=== PATIENT | female | born 1955 | race Caucasian/White ===

== ENCOUNTER → 2020-02-04 12:30 | Inpatient (IN) | payer BC ==
--- NOTE | 2020-02-03 10:07 | PCM.CONS ---
H&P History of Present Illness - General Date of Service: 02/03/20 Admit Problem/Dx: Admission Diagnosis/Problem Admission Diagnosis/Problem Osteoarthritis of knee Source of Information: Patient, Old Records, Provider, RN, RN Notes Reviewed History Limitations: Reports: No Limitations - History of Present Illness Initial Comments - Free Text/Narative: Linda Cao is a 64 yo female patient of Dr. Valencia who is post-operative day 0 of right TKA. Hospital medicine was consulted for post-operative medical care of the following listed medical conditions. At this time she is resting comfortably in bed. Pain is controlled. She denies any chest pain, shortness of breath, palpitations, nausea, or vomiting. She carries a history of: HLD, HTN, MABEL on CPAP, Gastritis, GERD, Hx/o Post-operative nausea and vomiting, Hypertonicity of Bladder, Hypothyroidism, Obesity, Ovarian and renal cancer, Anxiety, Depression. She was never a smoker. She is a full code. Her primary care provider is Mercedes Cassidy NP. - Related Data Allergies/Adverse Reactions: Allergies Allergy/AdvReac Type Severity Reaction Status Date / Time Iodinated Contrast Media Allergy Hives Verified 01/31/20 14:15 [Iodinated Contrast Media - IV Dye] Penicillins Allergy Hives Verified 01/31/20 14:15 sulfacetamide Allergy Hives Verified 01/31/20 14:15 pravastatin AdvReac Muscle Verified 01/31/20 14:20 Aches Home Medications: Home Meds DULoxetine [Cymbalta] 30 mg PO DAILY 09/30/15 [History] Glucosam/Chond-MSM 2/C/D3/Rustam [Molsuqmpfe-Mxybpvhqwca-TPO] 1 tab PO DAILY 09/30/15 [History] Hydrochlorothiazide 25 mg PO DAILY 09/30/15 [History] Calcium Carb/Vitamin D3/Vit K1 [Calcium + D Soft Chewable Tab] 2 tab PO DAILY 04/19/16 [History] Ubidecarenone [Coq-10] 1 cap PO DAILY 04/19/16 [History] diphenhydrAMINE [Benadryl] 100 mg PO BEDTIME PRN 04/19/16 [History] Acetaminophen/Diphenhydramine [Tylenol Pm Ex-Strength Caplet] 2 tab PO BEDTIME 01/31/20 [History] Ascorbic Acid [Vitamin C] 500 mg PO DAILY 01/31/20 [History] Cholecalciferol (Vitamin D3) [Vitamin D3] 2,000 unit PO DAILY 01/31/20 [History] Ezetimibe [Zetia] 10 mg PO DAILY 01/31/20 [History] LORazepam [Ativan] 0.25 - 0.5 mg PO Q8H PRN 01/31/20 [History] Melatonin 10 mg PO DAILY 01/31/20 [History] Multivitamin 1 tab PO DAILY 01/31/20 [History] Past Medical History HEENT History: Reports: Allergic Rhinitis, Impaired Vision Other HEENT History: wears glasses Cardiovascular History: Reports: High Cholesterol, Hypertension Respiratory History: Reports: Sleep Apnea Gastrointestinal History: Reports: Gastritis, GERD Other Gastrointestinal History: post operative nausea and vomiting, colon polyp Genitourinary History: Reports: Other (See Below) Other Genitourinary History: hypertonicity of bladder 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 , Other OB/BYN History: endosalpiniosis of L ovary, laparoscopy Musculoskeletal History: Reports: Arthritis Neurological History: Reports: None Psychiatric History: Reports: Anxiety Endocrine/Metabolic History: Reports: Hypothyroidism Hematologic History: Reports: None, Blood Transfusion(s) Immunologic History: Reports: None Oncologic (Cancer) History: Reports: Ovarian Other Oncologic History: kidney partial removal due to cancer Dermatologic History: Reports: None - Past Surgical History Head Surgeries/Procedures: Reports: None Cardiovascular Surgical History: Reports: None Respiratory Surgical History: Reports: None GI Surgical History: Reports: Colonoscopy, EGD Female Surgical History: Reports: Breast Reduction, Hysterectomy, Nephrectomy, Oophorectomy, Tubal Ligation Endocrine Surgical History: Reports: Thyroidectomy Neurological Surgical History: Reports: None Musculoskeletal Surgical History: Reports: None Oncologic Surgical History: Reports: None Dermatological Surgical History: Reports: None Social & Family History - Tobacco Use Smoking Status *Q: Never Smoker Second Hand Smoke Exposure: No - Caffeine Use Caffeine Use: Reports: Coffee, Soda - Recreational Drug Use Recreational Drug Use: No H&P Review of Systems - Review of Systems: Review Of Systems: See Below General: Reports: No Symptoms. Denies: Fever, Chills HEENT: Reports: No Symptoms. Denies: Headaches, Sore Throat Pulmonary: Reports: No Symptoms. Denies: Shortness of Breath, Wheezing, Pleuritic Chest Pain, Cough, Sputum Cardiovascular: Reports: No Symptoms. Denies: Chest Pain, Palpitations, Dyspnea on Exertion Gastrointestinal: Reports: No Symptoms. Denies: Abdominal Pain, Constipation, Diarrhea, Nausea, Vomiting Genitourinary: Reports: No Symptoms. Denies: Pain Musculoskeletal: Reports: Leg Pain Skin: Reports: No Symptoms. Denies: Cyanosis Psychiatric: Reports: No Symptoms. Denies: Confusion Neurological: Reports: Numbness, Tingling, Difficulty Walking, Gait Disturbance Hematologic/Lymphatic: Reports: No Symptoms Immunologic: Reports: No Symptoms Exam - Exam Exam: See Below - Vital Signs Vital Signs: Last Vital Signs Temp 98.8 F 02/03/20 09:05 Pulse 58 L 02/03/20 09:05 Resp 20 02/03/20 09:05 BP 150/70 H 02/03/20 09:05 Pulse Ox 92 L 02/03/20 09:05 Weight: 194 lb - Exam Quality Assessment: DVT Prophylaxis General: Alert, Oriented, Cooperative. No: Mild Distress HEENT: Conjunctiva Clear, EACs Clear, EOMI, Hearing Intact, Mucosa Moist & Hydro, Posterior Pharynx Clear, PERRLA Neck: Supple, Trachea Midline Lungs: Clear to Auscultation, Normal Respiratory Effort Cardiovascular: Regular Rate, Regular Rhythm GI/Abdominal Exam: Normal Bowel Sounds, Soft, Non-Tender, No Distention (Female) Exam: Deferred Rectal (Female) Exam: Deferred Extremities: Normal Capillary Refill, Leg Pain, Limited Range of Motion, Other (Bandage in place on left leg. Bandage is dry and intact. ) Peripheral Pulses: 2+: Radial (L), Radial (R), Dorsalis Pedis (L), Dorsalis Pedis (R) Skin: Warm, Dry, Intact Neurological: Cranial Nerves Intact (Grossly ) Neuro Extensive - Mental Status: Alert, Oriented x3, Normal Mood/Affect - Patient Data Lab Results Last 24 hrs: Laboratory Results - last 24 hr 01/31/20 Range/Units 10:30 COVID-19 PCR Not detected (NOT DETECT) Sepsis Event Note - Evaluation Sepsis Screening Result: No Definite Risk - Focused Exam Vital Signs: Vital Signs Temp Pulse Resp BP Pulse Ox 02/03/20 09:05 98.8 F 58 L 20 150/70 H 92 L Date Exam was Performed: 02/03/20 Time Exam was Performed: 16:06 Consult PN Assessment/Plan POD#: 0 Procedures: Procedures ASSAY OF PREALBUMIN (04/18/18) ASSAY OF SERUM ALBUMIN (04/18/18) ASSAY OF TROPONIN QUANT (03/15/14) COMPLETE CBC W/AUTO DIFF WBC (04/18/18) COMPREHEN METABOLIC PANEL (03/15/14) CT HEAD/BRAIN W/O DYE (03/15/14) DXA BONE DENSITY AXIAL (05/14/15) ELECTROCARDIOGRAM TRACING (03/15/14) EMERGENCY DEPT VISIT (09/30/15) EMERGENCY DEPT VISIT (03/15/14) HYDRATION IV INFUSION INIT (03/15/14) LAPAROSCOPIC CHOLECYSTECTOMY (04/20/16) METABOLIC PANEL TOTAL CA (04/18/18) MRI JNT OF LWR EXTRE W/O DYE (11/27/18) MRI JOINT UPR EXTREM W/O DYE (10/01/15) MRI NECK SPINE W/O DYE (10/01/15) PROTHROMBIN TIME (04/18/18) ROUTINE VENIPUNCTURE (04/18/18) US EXAM OF HEAD AND NECK (05/01/18) X-RAY EXAM CHEST 2 VIEWS (04/17/18) (1) S/P total knee arthroplasty SNOMED Code(s): 7738266033865, 576559259, 8352973499159 Code(s): Z96.659 - PRESENCE OF UNSPECIFIED ARTIFICIAL KNEE JOINT Priority: High Current Visit: Yes Qualifiers: Laterality: left Qualified Code(s): Z96.652 - Presence of left artificial knee joint (2) Osteoarthritis SNOMED Code(s): 219856385 Code(s): M19.90 - UNSPECIFIED OSTEOARTHRITIS, UNSPECIFIED SITE Priority: High Current Visit: Yes Qualifiers: Osteoarthritis location: knee Osteoarthritis type: primary Laterality: left Qualified Code(s): M17.12 - Unilateral primary osteoarthritis, left knee (3) HTN (hypertension) SNOMED Code(s): 34135418 Code(s): I10 - ESSENTIAL (PRIMARY) HYPERTENSION Priority: Medium Current Visit: No Qualifiers: Hypertension type: unspecified Qualified Code(s): I10 - Essential (primary) hypertension (4) HLD (hyperlipidemia) SNOMED Code(s): 93883418 Code(s): E78.5 - HYPERLIPIDEMIA, UNSPECIFIED Priority: Low Current Visit: No Qualifiers: Hyperlipidemia type: unspecified Qualified Code(s): E78.5 - Hyperlipidemia, unspecified (5) MABEL on CPAP SNOMED Code(s): 36346985 Code(s): G47.33 - OBSTRUCTIVE SLEEP APNEA (ADULT) (PEDIATRIC); Z99.89 - DEPENDENCE ON OTHER ENABLING MACHINES AND DEVICES Priority: Medium Current Visit: Yes (6) History of gastritis SNOMED Code(s): 634610422900485 Code(s): Z87.19 - PERSONAL HISTORY OF OTHER DISEASES OF THE DIGESTIVE SYSTEM Priority: Low Current Visit: No (7) GERD (gastroesophageal reflux disease) SNOMED Code(s): 925445850 Code(s): K21.9 - GASTRO-ESOPHAGEAL REFLUX DISEASE WITHOUT ESOPHAGITIS Priority: Low Current Visit: No Qualifiers: Esophagitis presence: esophagitis presence not specified Qualified Code(s): K21.9 - Gastro-esophageal reflux disease without esophagitis (8) History of postoperative nausea and vomiting SNOMED Code(s): 702431138, 620061856 Code(s): Z87.898 - PERSONAL HISTORY OF OTHER SPECIFIED CONDITIONS Priority: Medium Current Visit: No (9) Hypertonicity of bladder SNOMED Code(s): 037960731, 053812177 Code(s): N31.8 - OTHER NEUROMUSCULAR DYSFUNCTION OF BLADDER Priority: Low Current Visit: No (10) Anxiety SNOMED Code(s): 32802053 Code(s): F41.9 - ANXIETY DISORDER, UNSPECIFIED Priority: Low Current Visit: No (11) Depression SNOMED Code(s): 40688298 Code(s): F32.9 - MAJOR DEPRESSIVE DISORDER, SINGLE EPISODE, UNSPECIFIED Priority: Low Current Visit: No Qualifiers: Depression Type: other depression Qualified Code(s): F32.89 - Other specified depressive episodes (12) History of ovarian cancer Priority: Low Current Visit: No (13) History of renal carcinoma SNOMED Code(s): 234053762, 111873323 Code(s): Z85.528 - PERSONAL HISTORY OF OTHER MALIGNANT NEOPLASM OF KIDNEY Priority: Low Current Visit: No (14) Hypothyroidism SNOMED Code(s): 36353427 Code(s): E03.9 - HYPOTHYROIDISM, UNSPECIFIED Priority: Medium Current Visit: No Qualifiers: Hypothyroidism type: unspecified Qualified Code(s): E03.9 - Hypothyroidism, unspecified (15) Obesity SNOMED Code(s): 259482815, 840557003 Code(s): E66.9 - OBESITY, UNSPECIFIED Priority: Low Current Visit: No Qualifiers: Obesity type: unspecified obesity type Obesity classification: adult class 1 (BMI 30 - 34.9) Body mass index: BMI 32.0-32.9 Problem List Initiated/Reviewed/Updated: Yes Plan: I/P: Acute: S/P left total knee arthroplasty - post-operative day 0 -DVT prophylaxis and pain management per primary care team -PT/OT -IS/RT -Monitor oxygen saturation -Titrate oxygen as needed -Home medications reviewed -Vital signs stable -Monitor labs -Pre-operative Hgb was 15.7 -Pre-operative GFR was 72 -Pre-operative A1C was 5.5% -Pre-operative 12-Lead EKG showed Sinus rhythm with LAE -Pre-operative Echo showed EF of 55-60% with Grade 1 DD and LA dilation Osteoarthritis of left knee -Pain management per primary care team Chronic: HLD HTN MABEL on CPAP Gastritis GERD Hx/o Post-operative nausea and vomiting Hypertonicity of Bladder Hypothyroidism Obesity Ovarian and renal cancer Anxiety Depression Plan: CM for discharge planning GI prophylaxis Home medications as indicated Other orders as listed above Routine AM labs She is a full code. Her PCP is Mercedes Cassidy NP Thank you for allowing us to participate in the care of this patient!! Requesting Provider: Dr. Valencia Date Consult Requested: 02/03/20 Patient History Reviewed: Yes Admission H&P Reviewed: Yes Notified Requestor: Yes
--- NOTE | 2020-02-03 10:14 | PCM.PREANE ---
Preanesthetic Assessment - Procedure Proposed Procedure: left knee arthroplasty - Anesthesia/Transfusion/Family Hx Anesthesia History: Prior Anesthesia Reaction Type of Anesthesia Reaction: Excessive Nausea/Vomiting Family History of Anesthesia Reaction: No Transfusion History: Prior Transfusion Without Reaction - Review of Systems General: No Symptoms Pulmonary: No Symptoms Cardiovascular: No Symptoms Gastrointestinal: No Symptoms Neurological: No Symptoms Other: Reports: Depression - Physical Assessment NPO Status Date: 02/02/20 NPO Status Time: 23:30 Vital Signs: Last Vital Signs Temp 98.8 F 02/03/20 09:05 Pulse 58 L 02/03/20 09:05 Resp 20 02/03/20 09:05 BP 150/70 H 02/03/20 09:05 Pulse Ox 92 L 02/03/20 09:05 Height: 5 ft 5 in Weight: 87.997 kg ASA Class: 2 Mental Status: Alert & Oriented x3 Airway Class: Mallampati = 1 Dentition: Reports: Normal Dentition Thyro-Mental Finger Breadths: 3 Mouth Opening Finger Breadths: 3 ROM/Head Extension: Full Lungs: Clear to Auscultation, Normal Respiratory Effort Cardiovascular: Regular Rate, Regular Rhythm - Lab Values: Laboratory Last Values COVID-19 PCR Not detected (NOT DETECT) 01/31/20 10:30 MRSA (PCR) Negative 01/08/20 12:46 - Allergies Allergies/Adverse Reactions: Allergies Allergy/AdvReac Type Severity Reaction Status Date / Time Iodinated Contrast Media Allergy Hives Verified 01/31/20 14:15 [Iodinated Contrast Media - IV Dye] iodine Allergy Hives Verified 01/31/20 14:15 Penicillins Allergy Hives Verified 01/31/20 14:15 sulfacetamide Allergy Hives Verified 01/31/20 14:15 pravastatin AdvReac Muscle Verified 01/31/20 14:20 Aches - Blood Blood Available: No - Acknowledgements Anesthesia Type Planned: Spinal Pt an Appropriate Candidate for the Planned Anesthesia: Yes Alternatives and Risks of Anesthesia Discussed w Pt/Guardian: Yes Pt/Guardian Understands and Agrees with Anesthesia Plan: Yes PreAnesthesia Questionnaire HEENT History: Reports: Allergic Rhinitis, Impaired Vision Other HEENT History: wears glasses Cardiovascular History: Reports: High Cholesterol, Hypertension Respiratory History: Reports: Sleep Apnea (cpap) Gastrointestinal History: Reports: Gastritis, GERD Other Gastrointestinal History: post operative nausea and vomiting, colon polyp Genitourinary History: Reports: Other (See Below) Other Genitourinary History: hypertonicity of bladder [employer]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 , Other OB/BYN History: endosalpiniosis of L ovary, laparoscopy Musculoskeletal History: Reports: Arthritis Neurological History: Reports: None Psychiatric History: Reports: Anxiety Endocrine/Metabolic History: Reports: Hypothyroidism, Obesity/BMI 30+ Hematologic History: Reports: None, Blood Transfusion(s) Immunologic History: Reports: None Oncologic (Cancer) History: Reports: Ovarian Other Oncologic History: kidney partial removal due to cancer Dermatologic History: Reports: None - Past Surgical History Head Surgeries/Procedures: Reports: None Cardiovascular Surgical History: Reports: None Respiratory Surgical History: Reports: None GI Surgical History: Reports: Colonoscopy, EGD Female Surgical History: Reports: Breast Reduction, Hysterectomy, Nephrectomy (partial), Oophorectomy, Tubal Ligation Endocrine Surgical History: Reports: Thyroidectomy Neurological Surgical History: Reports: None Musculoskeletal Surgical History: Reports: None Oncologic Surgical History: Reports: None Dermatological Surgical History: Reports: None - SUBSTANCE USE Smoking Status *Q: Never Smoker Tobacco Use Within Last Twelve Months: No Second Hand Smoke Exposure: No Recreational Drug Use History: No - HOME MEDS Home Medications: Home Meds DULoxetine [Cymbalta] 30 mg PO DAILY 09/30/15 [History] Glucosam/Chond-MSM 2/C/D3/Rustam [Tizkbuyvtj-Clhpxthrqnq-QDT] 1 tab PO DAILY 09/30/15 [History] Hydrochlorothiazide 25 mg PO DAILY 09/30/15 [History] Calcium Carb/Vitamin D3/Vit K1 [Calcium + D Soft Chewable Tab] 2 tab PO DAILY 04/19/16 [History] Ubidecarenone [Coq-10] 1 cap PO DAILY 04/19/16 [History] diphenhydrAMINE [Benadryl] 100 mg PO BEDTIME PRN 04/19/16 [History] Acetaminophen/Diphenhydramine [Tylenol Pm Ex-Strength Caplet] 2 tab PO BEDTIME 01/31/20 [History] Ascorbic Acid [Vitamin C] 500 mg PO DAILY 01/31/20 [History] Cholecalciferol (Vitamin D3) [Vitamin D3] 2,000 unit PO DAILY 01/31/20 [History] Ezetimibe [Zetia] 10 mg PO DAILY 01/31/20 [History] LORazepam [Ativan] 0.25 - 0.5 mg PO Q8H PRN 01/31/20 [History] Melatonin 10 mg PO DAILY 01/31/20 [History] Multivitamin 1 tab PO DAILY 01/31/20 [History] - CURRENT (IN HOUSE) MEDS Current Meds: Current Medications Acetaminophen (Tylenol) 975 mg PO ONETIME [facility] Stop: 02/03/20 14:00 Last Admin: 02/03/20 09:20 Dose: 975 mg Documented by: Aspirin (Ecotrin) 325 mg PO BID [facility] Bisacodyl (Dulcolax) 5 mg PO DAILY PRN PRN Reason: Constipation Morphine Sulfate 8 mg/Epinephrine HCl 0.3 mg/Cefuroxime Sodium 750 mg/Ketorolac Tromethamine 30 mg/Sodium Chloride 7.9 ml 0 mg .XX ASDIRECTED PRN PRN Reason: Pain Cyclobenzaprine HCl (Flexeril) 10 mg PO TID PRN PRN Reason: Spasms Docusate Sodium (Colace) 100 mg PO BID [facility] Famotidine (Pepcid) 20 mg PO Q12H [facility] Lactated Ringer's (Ringers, Lactated) 1,000 mls @ 125 mls/hr IV ASDIRECTED [facility] Stop: 02/03/20 23:00 Last Admin: 02/03/20 09:35 Dose: 125 mls/hr Documented by: Cefazolin Sodium/Dextrose 2 gm (/ Premix) 50 mls @ 100 mls/hr IV Q8H [facility] Stop: 02/03/20 23:14 Ketorolac Tromethamine (Toradol) 15 mg IVPUSH Q6H PRN PRN Reason: Pain Lidocaine/Sodium Bicarbonate (Buffered Lidocaine 1% In Ns 8.4%) 0.25 ml IDERM ONETIME PRN PRN Reason: Prior to IV Start Stop: 02/03/20 18:00 Magnesium Hydroxide (Milk Of Magnesia) 30 ml PO BID PRN PRN Reason: Constipation Morphine Sulfate (Morphine) 2 mg IVPUSH Q2H PRN PRN Reason: Breakthrough Pain Naloxone HCl (Narcan) 0.1 mg IVPUSH Q5M PRN PRN Reason: Oversedation Ondansetron HCl (Zofran) 4 mg IVPUSH Q6H PRN PRN Reason: Nausea/Vomiting Oxycodone HCl (Oxycontin) 10 mg PO ONETIME [facility] Stop: 02/03/20 14:00 Last Admin: 02/03/20 09:20 Dose: 10 mg Documented by: Oxycodone/Acetaminophen (Percocet 325-5 Mg) 1 - 2 tab PO Q4H PRN PRN Reason: Pain Pregabalin (Lyrica) 50 mg PO ONETIME [facility] Stop: 02/03/20 14:00 Last Admin: 02/03/20 09:21 Dose: 50 mg Documented by: Scopolamine (Transderm-Scop) 1.5 mg TRDERM Q72H PRN PRN Reason: PONV Stop: 02/03/20 16:00 Last Admin: 02/03/20 09:20 Dose: 1.5 mg Documented by: Senna (Senna) 8.6 mg PO BID PRN PRN Reason: Constipation Sodium Chloride (Saline Flush) 10 ml FLUSH ASDIRECTED PRN PRN Reason: Keep Vein Open Stop: 02/03/20 18:00 Discontinued Medications Bupivacaine HCl (Sensorcaine-Mpf 0.25%) Confirm Administered Dose 30 ml .ROUTE .STK-MED ONE Stop: 02/03/20 09:48 Cefazolin Sodium (Ancef) Confirm Administered Dose 2 gm .ROUTE .STK-MED ONE Stop: 02/03/20 09:44 Cefazolin Sodium (Ancef) Confirm Administered Dose 2 gm .ROUTE .STK-MED ONE Stop: 02/03/20 09:48 Epinephrine HCl (Adrenalin) Confirm Administered Dose 1 mg .ROUTE .STK-MED ONE Stop: 02/03/20 06:46 Fentanyl (Sublimaze) Confirm Administered Dose 100 mcg .ROUTE .STK-MED ONE Stop: 02/03/20 09:44 Lidocaine HCl (Xylocaine-Mpf 1%) Confirm Administered Dose 4 mls @ as directed .ROUTE .STK-MED ONE Stop: 02/03/20 09:43 Iodine (Iodine 2% Mild Tincture) Confirm Administered Dose 30 ml .ROUTE .STK-MED ONE Stop: 02/03/20 09:48 Midazolam HCl (Versed 1 Mg/Ml) Confirm Administered Dose 2 mg .ROUTE .STK-MED ONE Stop: 02/03/20 09:44 Propofol (Diprivan 20 Ml) Confirm Administered Dose 600 mg .ROUTE .STK-MED ONE Stop: 02/03/20 09:43 Ropivacaine (Naropin 0.5%) Confirm Administered Dose 30 ml .ROUTE .STK-MED ONE Stop: 02/03/20 06:46 Tranexamic Acid (Cyklokapron) Confirm Administered Dose 1,000 mg .ROUTE .STK-MED ONE Stop: 02/03/20 09:48 Vancomycin HCl (Vancomycin) Confirm Administered Dose 1 gm .ROUTE .STK-MED ONE Stop: 02/03/20 09:48
[2020-02-03] MEDS: ceFAZolin 1 GM Vial ONE ×2 (12:11→12:20)
[2020-02-03] MEDS: Iodine/Sodium Iodide 2% Tincture 30 ML Bottle ONE ×2 (12:11→12:18)
[2020-02-03] MEDS: Morphine Sulfate 8 MG, EPINEPHrine 0.3 MG, Cefuroxime 750 MG, Ketorolac 30 MG, Sodium C... PRN ×10 (12:13→12:23)
[2020-02-03] MEDS: Bupivacaine 0.25% 10 ML SDV ONE ×2 (12:13→12:23)
[2020-02-03] MEDS: Vancomycin 1 GM SDV ONE ×3 (12:13→12:27)
--- NOTE | 2020-02-03 13:00 | PCM.POSTAN ---
POST ANESTHESIA ASSESSMENT - MENTAL STATUS Mental Status: Alert, Oriented - VITAL SIGNS Vital Signs: Last Vital Signs Temp 98.8 F 02/03/20 09:05 Pulse 58 L 02/03/20 09:05 Resp 20 02/03/20 09:05 BP 150/70 H 02/03/20 09:05 Pulse Ox 92 L 02/03/20 09:05 1254 119/61 68 16 98.1 97% - RESPIRATORY Respiratory Status: Respiratory Rate WNL, Airway Patent, O2 Saturation Stable, Supplemental Oxygen - CARDIOVASCULAR CV Status: Pulse Rate WNL, Blood Pressure Stable - GASTROINTESTINAL GI Status: No Symptoms - PAIN Pain Score: 0 - POST OP HYDRATION Hydration Status: Adequate & Stable
--- NOTE | 2020-02-03 13:24 | PCM.OPNOTE ---
- General Post-Op/Procedure Note Date of Surgery/Procedure: 02/03/20 Operative Procedure(s): left total knee arthroplasty Pre Op Diagnosis: left knee osteoarthrosis Post-Op Diagnosis: Same Anesthesia Technique: Local, MAC, Spinal Primary Surgeon: Santos Valencia Anesthesia Provider: Braeden Perkins Consumer Experience Consultant: Meka Kenny Consumer Experience Consultant: Carley Bernal EBJosi in mLs: 250 Complications: None Condition: Good Free Text/Narrative:: 3/ 9mm 29x9
--- NOTE | 2020-02-03 13:29 | PCM.SN.2 ---
- Free Text/Narrative Note: 02/03/20 [id number] Left selective femoral nerve block at the adductor canal for post-procedure pain control under US guidance requested by Dr. Valencia. Date:02/03/20 Time Out: 1308 Start: 1308 End: 1318 Chart reviewed. Consent signed. Questions answered. Appropriate monitors applied. Time out performed. Left mid-shaft femur identified with ultrasound, scanning medially of femur, the femoral artery in the adductor canal visualized, and the femoral nerve located laterally to the artery. The skin was prepped lateral to the ultrasound probe with chlorahexadine times two. The 21ga 4 insulated block needle was inserted under direct ultrasound guidance into the adductor canal. 25mL of 0.5% ropivacaine with 1:200,000 epinephrine was injected circumferentially around the nerve with intermittent negative aspiration noted. Patient tolerated the procedure well. Sterile technique noted along with sterile gloves, mask, and sterile probe cover. See picture on progress note and vital signs on nurses notes. Block completed in PACU. Printer did not print pictures. Braeden Perkins ROLL CLEANER
--- NOTE | 2020-02-03 14:39 | CR ---
Left knee: AP and lateral views of the left knee were obtained. Comparison: Prior MRI left knee exam of 11/27/18.. Knee prosthesis is seen. Components are aligned. Underlying bony structures are intact. Soft tissue air is noted from the surgical procedure. Underlying bony structures are intact. Impression: 1. Satisfactory radiographic appearance of recently placed left knee prosthesis. Diagnostic code #2 This report was dictated in MDT
[2020-02-03] MEDS: Acetaminophen/oxyCODONE 325-5 MG Tab PO PRN ×2 (17:03→21:44)
[2020-02-03] MEDS: ceFAZolin 2 GM in Premix Bag 1 BAG IV SCH (17:04)
[2020-02-03] MEDS: Famotidine 20 MG Tab PO SCH (21:43)
[2020-02-03] MEDS: Docusate Sodium 100 MG Cap PO SCH (21:43)
[2020-02-04] MEDS: ceFAZolin 2 GM in Premix Bag 1 BAG IV SCH ×2 (03:08→10:16)
[2020-02-04] MEDS: Acetaminophen/oxyCODONE 325-5 MG Tab PO PRN ×2 (03:15→07:30)
--- NOTE | 2020-02-04 07:21 | PCM.CONSN ---
- General Info Date of Service: 02/04/20 Admission Dx/Problem (Free Text): Admission Diagnosis/Problem Admission Diagnosis/Problem Osteoarthritis of knee Functional Status: Reports: Pain Controlled, Tolerating Diet, Ambulating, Urinating, Incentive Spirometry. Denies: New Symptoms - Review of Systems General: Reports: No Symptoms. Denies: Chills, Appetite HEENT: Reports: No Symptoms. Denies: Headaches, Sore Throat Pulmonary: Reports: No Symptoms. Denies: Shortness of Breath, Pleuritic Chest Pain, Cough, Sputum, Wheezing Cardiovascular: Reports: No Symptoms. Denies: Chest Pain, Palpitations, Dyspnea on Exertion Gastrointestinal: Reports: No Symptoms. Denies: Abdominal Pain, Constipation, Diarrhea, Nausea, Vomiting Genitourinary: Reports: No Symptoms. Denies: Pain Musculoskeletal: Reports: Leg Pain Skin: Reports: No Symptoms. Denies: Cyanosis Neurological: Reports: Difficulty Walking, Gait Disturbance. Denies: Confusion, Numbness, Tingling Psychiatric: Reports: No Symptoms - Patient Data Vitals - Most Recent: Last Vital Signs Temp 98.6 F 02/04/20 02:58 Pulse 66 02/04/20 02:58 Resp 18 02/04/20 02:58 BP 120/65 02/04/20 02:58 Pulse Ox 94 L 02/04/20 06:30 Weight - Most Recent: 200 lb 6.4 oz I&O - Last 24 Hours: Intake & Output 02/03/20 02/04/20 02/04/20 22:59 06:59 14:59 Intake Total 1020 2000 Output Total 0 3700 Balance 1020 -1700 Lab Results Last 24 Hours: Laboratory Results - last 24 hr 02/04/20 02/04/20 Range/Units 05:07 05:07 WBC 12.87 H (3.98-10.04) K/mm3 RBC 4.08 (3.98-5.22) M/mm3 Hgb 13.0 (11.2-15.7) gm/dl Hct 40.1 (34.1-44.9) % MCV 98.3 H (79.4-94.8) fl MCH 31.9 (25.6-32.2) pg MCHC 32.4 (32.2-35.5) g/dl RDW Std Deviation 42.8 (36.4-46.3) fL Plt Count 238 (182-369) K/mm3 MPV 11.5 (9.4-12.3) fl Sodium 140 (136-145) mEq/L Potassium 3.9 (3.5-5.1) mEq/L Chloride 103 (98-107) mEq/L Carbon Dioxide 29 (21-32) mEq/L Anion Gap 11.9 (5-15) BUN 14 (7-18) mg/dL Creatinine 1.0 (0.55-1.02) mg/dL Est Cr Clr Drug Dosing 51.81 mL/min Estimated GFR (MDRD) 56 (>60) mL/min BUN/Creatinine Ratio 14.0 (14-18) Glucose 112 (80-115) mg/dL Calcium 9.0 (8.5-10.1) mg/dL Total Bilirubin 0.8 (0.2-1.0) mg/dL AST 23 (15-37) U/L ALT 31 (14-59) U/L Alkaline Phosphatase 52 (46-116) U/L Total Protein 6.7 (6.4-8.2) g/dl Albumin 3.3 L (3.4-5.0) g/dl Globulin 3.4 gm/dL Albumin/Globulin Ratio 1.0 (1-2) Med Orders - Current: Current Medications Aspirin (Ecotrin) 325 mg PO BID [facility] Bisacodyl (Dulcolax) 5 mg PO DAILY PRN PRN Reason: Constipation Cholecalciferol (Vitamin D3) 50 mcg PO DAILY [facility] Cyclobenzaprine HCl (Flexeril) 10 mg PO TID PRN PRN Reason: Spasms Docusate Sodium (Colace) 100 mg PO BID [facility] Last Admin: 02/03/20 21:43 Dose: 100 mg Documented by: Duloxetine HCl (Cymbalta) 30 mg PO BEDTIME [facility] Last Admin: 02/03/20 21:43 Dose: 30 mg Documented by: Ezetimibe (Zetia) 10 mg PO BEDTIME [facility] Last Admin: 02/03/20 21:44 Dose: 10 mg Documented by: Famotidine (Pepcid) 20 mg PO Q12H [facility] Last Admin: 02/03/20 21:43 Dose: 20 mg Documented by: Cefazolin Sodium/Dextrose 2 gm (/ Premix) 50 mls @ 100 mls/hr IV Q8H [facility] Stop: 02/04/20 10:29 Last Admin: 02/04/20 03:08 Dose: 100 mls/hr Documented by: Ketorolac Tromethamine (Toradol) 15 mg IVPUSH Q6H PRN PRN Reason: Pain Magnesium Hydroxide (Milk Of Magnesia) 30 ml PO BID PRN PRN Reason: Constipation Morphine Sulfate (Morphine) 2 mg IVPUSH Q2H PRN PRN Reason: Breakthrough Pain Naloxone HCl (Narcan) 0.1 mg IVPUSH Q5M PRN PRN Reason: Oversedation Ondansetron HCl (Zofran) 4 mg IVPUSH Q6H PRN PRN Reason: Nausea/Vomiting Oxycodone/Acetaminophen (Percocet 325-5 Mg) 1 - 2 tab PO Q4H PRN PRN Reason: Pain Last Admin: 02/04/20 03:15 Dose: 2 tab Documented by: Senna (Senna) 8.6 mg PO BID PRN PRN Reason: Constipation Discontinued Medications Acetaminophen (Tylenol) 975 mg PO ONETIME AIDEE Stop: 02/03/20 14:00 Last Admin: 02/03/20 09:20 Dose: 975 mg Documented by: Bupivacaine HCl (Sensorcaine-Mpf 0.25%) Confirm Administered Dose 30 ml .ROUTE .STK-MED ONE Stop: 02/03/20 09:48 Last Admin: 02/03/20 12:23 Dose: 30 ml Documented by: Cefazolin Sodium (Ancef) Confirm Administered Dose 2 gm .ROUTE .STK-MED ONE Stop: 02/03/20 09:44 Last Admin: 02/03/20 12:20 Dose: 2 gm Documented by: Cefazolin Sodium (Ancef) Confirm Administered Dose 2 gm .ROUTE .STK-MED ONE Stop: 02/03/20 09:48 Morphine Sulfate 8 mg/Epinephrine HCl 0.3 mg/Cefuroxime Sodium 750 mg/Ketorolac Tromethamine 30 mg/Sodium Chloride 7.9 ml 0 mg .XX ASDIRECTED PRN PRN Reason: Pain Stop: 02/03/20 12:00 Last Admin: 02/03/20 12:23 Dose: 788.3 mg Documented by: Dexamethasone (Dexamethasone) Confirm Administered Dose 20 mg .ROUTE .STK-MED ONE Stop: 02/03/20 11:48 Ephedrine Sulfate (Ephedrine 25 Mg/5 Ml Syringe) Confirm Administered Dose 25 mg IV .STK-MED ONE Stop: 02/03/20 11:49 Ephedrine Sulfate (Ephedrine 25 Mg/5 Ml Syringe) Confirm Administered Dose 25 mg IV .STK-MED ONE Stop: 02/03/20 12:13 Epinephrine HCl (Adrenalin) Confirm Administered Dose 1 mg .ROUTE .STK-MED ONE Stop: 02/03/20 06:46 Fentanyl (Sublimaze) Confirm Administered Dose 100 mcg .ROUTE .STK-MED ONE Stop: 02/03/20 09:44 Fentanyl (Sublimaze) 50 mcg IVPUSH Q5M PRN PRN Reason: Pain Stop: 02/03/20 18:00 Hydromorphone HCl (Dilaudid) 0.5 mg IVPUSH Q10M PRN PRN Reason: Pain (severe 7-10) Stop: 02/03/20 18:00 Lactated Ringer's (Ringers, Lactated) 1,000 mls @ 125 mls/hr IV ASDIRECTED AIDEE Stop: 02/03/20 23:00 Last Admin: 02/03/20 09:35 Dose: 125 mls/hr Documented by: Lidocaine HCl (Xylocaine-Mpf 1%) Confirm Administered Dose 4 mls @ as directed .ROUTE .STK-MED ONE Stop: 02/03/20 09:43 Lactated Ringer's (Ringers, Lactated) Confirm Administered Dose 1,000 mls @ as directed .ROUTE .STK-MED ONE Stop: 02/03/20 11:32 Lactated Ringer's (Ringers, Lactated) Confirm Administered Dose 1,000 mls @ as directed .ROUTE .STK-MED ONE Stop: 02/03/20 12:47 Iodine (Iodine 2% Mild Tincture) Confirm Administered Dose 30 ml .ROUTE .STK-MED ONE Stop: 02/03/20 09:48 Last Admin: 02/03/20 12:18 Dose: 18 ml Documented by: Ketamine HCl (Ketalar) Confirm Administered Dose 500 mg .ROUTE .STK-MED ONE Stop: 02/03/20 11:33 Ketorolac Tromethamine (Toradol) Confirm Administered Dose 30 mg .ROUTE .STK-MED ONE Stop: 02/03/20 12:25 Lidocaine/Sodium Bicarbonate (Buffered Lidocaine 1% In Ns 8.4%) 0.25 ml IDERM ONETIME PRN PRN Reason: Prior to IV Start Stop: 02/03/20 18:00 Midazolam HCl (Versed 1 Mg/Ml) Confirm Administered Dose 2 mg .ROUTE .STK-MED ONE Stop: 02/03/20 09:44 Ondansetron HCl (Zofran) Confirm Administered Dose 4 mg .ROUTE .STK-MED ONE Stop: 02/03/20 11:33 Ondansetron HCl (Zofran) 4 mg IVPUSH ONETIME PRN PRN Reason: Nausea/Vomiting Stop: 02/03/20 18:00 Oxycodone HCl (Oxycontin) 10 mg PO ONETIME AIDEE Stop: 02/03/20 14:00 Last Admin: 02/03/20 09:20 Dose: 10 mg Documented by: Pregabalin (Lyrica) 50 mg PO ONETIME AIDEE Stop: 02/03/20 14:00 Last Admin: 02/03/20 09:21 Dose: 50 mg Documented by: Propofol (Diprivan 20 Ml) Confirm Administered Dose 600 mg .ROUTE .STK-MED ONE Stop: 02/03/20 09:43 Ropivacaine (Naropin 0.5%) Confirm Administered Dose 30 ml .ROUTE .STK-MED ONE Stop: 02/03/20 06:46 Scopolamine (Transderm-Scop) 1.5 mg TRDERM Q72H PRN PRN Reason: PONV Stop: 02/03/20 16:00 Last Admin: 02/03/20 09:20 Dose: 1.5 mg Documented by: Sodium Chloride (Saline Flush) 10 ml FLUSH ASDIRECTED PRN PRN Reason: Keep Vein Open Stop: 02/03/20 18:00 Tranexamic Acid (Cyklokapron) Confirm Administered Dose 1,000 mg .ROUTE .STK-MED ONE Stop: 02/03/20 09:48 Last Admin: 02/03/20 12:32 Dose: 1,000 mg Documented by: Vancomycin HCl (Vancomycin) Confirm Administered Dose 1 gm .ROUTE .STK-MED ONE Stop: 02/03/20 09:48 Last Admin: 02/03/20 12:27 Dose: 1 gm Documented by: - Exam Quality Assessment: DVT Prophylaxis. No: Supplemental Oxygen, Urine Catheter General: Alert, Oriented, Cooperative, No Acute Distress HEENT: Pupils Equal, EOMI, Mucous Membr. Moist/[place] Neck: Supple, Trachea Midline Lungs: Clear to Auscultation, Normal Respiratory Effort Cardiovascular: Regular Rate, Regular Rhythm GI/Abdominal Exam: Normal Bowel Sounds, Soft, Non-Tender, No Distention (Female) Exam: Deferred Back Exam: Normal Inspection, Full Range of Motion Extremities: Normal Capillary Refill, Leg Pain, Limited Range of Motion, Other (Bandage in place on left leg. Cooling pack in place ) Peripheral Pulses: 2+: Radial (L), Radial (R), Dorsalis Pedis (L), Dorsalis Pedis (R) Skin: Warm, Dry, Intact Wound/Incisions: Dressing Dry and Intact Neurological: No New Focal Deficit Psy/Mental Status: Alert, Normal Affect, Normal Mood Sepsis Event Note - Evaluation Sepsis Screening Result: No Definite Risk - Focused Exam Vital Signs: Vital Signs Temp Pulse Resp BP Pulse Ox Pulse Ox Pulse Ox 02/04/20 06:30 94 L 02/04/20 02:58 98.6 F 66 18 120/65 95 02/03/20 23:40 98.1 F 69 20 121/71 94 L 02/03/20 22:22 90 L 02/03/20 22:17 91 L 02/03/20 19:41 98.4 F 84 12 146/76 H 95 Date Exam was Performed: 02/04/20 Time Exam was Performed: 09:40 Consult PN Assessment/Plan POD#: 1 Procedures: Procedures ASSAY OF PREALBUMIN (04/18/18) ASSAY OF SERUM ALBUMIN (04/18/18) ASSAY OF TROPONIN QUANT (03/15/14) COMPLETE CBC W/AUTO DIFF WBC (04/18/18) COMPREHEN METABOLIC PANEL (03/15/14) CT HEAD/BRAIN W/O DYE (03/15/14) DXA BONE DENSITY AXIAL (05/14/15) ELECTROCARDIOGRAM TRACING (03/15/14) EMERGENCY DEPT VISIT (09/30/15) EMERGENCY DEPT VISIT (03/15/14) HYDRATION IV INFUSION INIT (03/15/14) LAPAROSCOPIC CHOLECYSTECTOMY (04/20/16) METABOLIC PANEL TOTAL CA (04/18/18) MRI JNT OF LWR EXTRE W/O DYE (11/27/18) MRI JOINT UPR EXTREM W/O DYE (10/01/15) MRI NECK SPINE W/O DYE (10/01/15) PROTHROMBIN TIME (04/18/18) ROUTINE VENIPUNCTURE (04/18/18) US EXAM OF HEAD AND NECK (05/01/18) X-RAY EXAM CHEST 2 VIEWS (04/17/18) (1) S/P total knee arthroplasty SNOMED Code(s): 0227017481360, 270941615, 0984165667365 Code(s): Z96.659 - PRESENCE OF UNSPECIFIED ARTIFICIAL KNEE JOINT Priority: High Current Visit: Yes Qualifiers: Laterality: left Qualified Code(s): Z96.652 - Presence of left artificial knee joint (2) Osteoarthritis SNOMED Code(s): 939800933 Code(s): M19.90 - UNSPECIFIED OSTEOARTHRITIS, UNSPECIFIED SITE Priority: High Current Visit: Yes Qualifiers: Osteoarthritis location: knee Osteoarthritis type: primary Laterality: left Qualified Code(s): M17.12 - Unilateral primary osteoarthritis, left knee (3) HTN (hypertension) SNOMED Code(s): 82667350 Code(s): I10 - ESSENTIAL (PRIMARY) HYPERTENSION Priority: Medium Current Visit: No Qualifiers: Hypertension type: unspecified Qualified Code(s): I10 - Essential (primary) hypertension (4) HLD (hyperlipidemia) SNOMED Code(s): 40673390 Code(s): E78.5 - HYPERLIPIDEMIA, UNSPECIFIED Priority: Low Current Visit: No Qualifiers: Hyperlipidemia type: unspecified Qualified Code(s): E78.5 - Hyperlipidemia, unspecified (5) MABEL on CPAP SNOMED Code(s): 03796271 Code(s): G47.33 - OBSTRUCTIVE SLEEP APNEA (ADULT) (PEDIATRIC); Z99.89 - DEPENDENCE ON OTHER ENABLING MACHINES AND DEVICES Priority: Medium Current Visit: Yes (6) History of gastritis SNOMED Code(s): 649748566497486 Code(s): Z87.19 - PERSONAL HISTORY OF OTHER DISEASES OF THE DIGESTIVE SYSTEM Priority: Low Current Visit: No (7) GERD (gastroesophageal reflux disease) SNOMED Code(s): 323165864 Code(s): K21.9 - GASTRO-ESOPHAGEAL REFLUX DISEASE WITHOUT ESOPHAGITIS Priority: Low Current Visit: No Qualifiers: Esophagitis presence: esophagitis presence not specified Qualified Code(s): K21.9 - Gastro-esophageal reflux disease without esophagitis (8) History of postoperative nausea and vomiting SNOMED Code(s): 847478306, 732134569 Code(s): Z87.898 - PERSONAL HISTORY OF OTHER SPECIFIED CONDITIONS Priority: Medium Current Visit: No (9) Hypertonicity of bladder SNOMED Code(s): 178191960, 470684532 Code(s): N31.8 - OTHER NEUROMUSCULAR DYSFUNCTION OF BLADDER Priority: Low Current Visit: No (10) Anxiety SNOMED Code(s): 46569507 Code(s): F41.9 - ANXIETY DISORDER, UNSPECIFIED Priority: Low Current Visit: No (11) Depression SNOMED Code(s): 98783919 Code(s): F32.9 - MAJOR DEPRESSIVE DISORDER, SINGLE EPISODE, UNSPECIFIED Priority: Low Current Visit: No Qualifiers: Depression Type: other depression Qualified Code(s): F32.89 - Other specified depressive episodes (12) History of ovarian cancer Priority: Low Current Visit: No (13) History of renal carcinoma SNOMED Code(s): 971889120, 795302962 Code(s): Z85.528 - PERSONAL HISTORY OF OTHER MALIGNANT NEOPLASM OF KIDNEY Priority: Low Current Visit: No (14) Hypothyroidism SNOMED Code(s): 17555604 Code(s): E03.9 - HYPOTHYROIDISM, UNSPECIFIED Priority: Medium Current Visit: No Qualifiers: Hypothyroidism type: unspecified Qualified Code(s): E03.9 - Hypothyroidism, unspecified (15) Obesity SNOMED Code(s): 419360343, 148559495 Code(s): E66.9 - OBESITY, UNSPECIFIED Priority: Low Current Visit: No Qualifiers: Obesity type: unspecified obesity type Obesity classification: adult class 1 (BMI 30 - 34.9) Body mass index: BMI 32.0-32.9 (16) Postoperative renal failure SNOMED Code(s): 231311826 Code(s): N99.0 - POSTPROCEDURAL (ACUTE) (CHRONIC) KIDNEY FAILURE Priority: High Current Visit: Yes Problem List Initiated/Reviewed/Updated: Yes My Orders Last 24 Hours: My Active Orders 02/03/20 16:06 CPAP Noctural Home [RT BiPAP/CPAP] [RC] ASDIRECTED 02/03/20 21:00 DULoxetine [Cymbalta] 30 mg PO BEDTIME Ezetimibe [Zetia] 10 mg PO BEDTIME 02/04/20 09:00 Cholecalciferol (Vitamin D3) [Vitamin D3] 50 mcg PO DAILY Plan: I/P: Acute: S/P left total knee arthroplasty - post-operative day 1 -DVT prophylaxis and pain management per primary care team -PT/OT -IS/RT -Monitor oxygen saturation -Titrate oxygen as needed -Home medications reviewed -Vital signs stable -Monitor labs -Pre-operative Hgb was 15.7; Now 13.0 -Pre-operative GFR was 72; Now 56 -Pre-operative Creatinine was 0.80; Now 1.0 -Pre-operative BUN was 14; Now 14 -Pre-operative A1C was 5.5% -Pre-operative 12-Lead EKG showed Sinus rhythm with LAE -Pre-operative Echo showed EF of 55-60% with Grade 1 DD and LA dilation Osteoarthritis of left knee -Pain management per primary care team Postoperative kidney injury -Labs as above -500mL fluid bolus -F/u with primary care provider for repeat lab draw in 5-7 days Chronic: HLD HTN MABEL on CPAP Gastritis GERD Hx/o Post-operative nausea and vomiting Hypertonicity of Bladder Hypothyroidism Obesity Ovarian and renal cancer Anxiety Depression Plan: CM for discharge planning GI prophylaxis Home medications as indicated Other orders as listed above Routine AM labs She is a full code. Her PCP is Mercedes Cassidy NP From a hospitalist standpoint Linda is doing pretty well. She has been up ambulating and working with therapies. Her pain is controlled. Her vital signs remain stable. Her GFR did decrease quite a bit today and she was given a 500ml fluid bolus. She was encouraged to orally hydrate as well. She should follow-up with her PCP within 5-7 days of discharge for follow-up BMP. She has urinated and is off of oxygen. She is cleared for discharge pending primary team and PT/OT agreement. Thank you for allowing us to participate in the care of this patient!!
--- NOTE | 2020-02-04 08:14 | PCM.SURGPN ---
- General Info Date of Service: 02/04/20 POD#: 1 Functional Status: Reports: Pain Controlled, Tolerating Diet, Ambulating, Urinating, Incentive Spirometry, Other (The pt states she slept approx 3 hours. She reports she is doing well.) - Patient Data Vitals - Most Recent: Last Vital Signs Temp 98.6 F 02/04/20 02:58 Pulse 66 02/04/20 02:58 Resp 18 02/04/20 02:58 BP 120/65 02/04/20 02:58 Pulse Ox 94 L 02/04/20 06:30 Weight - Most Recent: 200 lb 6.4 oz I&O - Last 24 Hours: Intake & Output 02/03/20 02/04/20 02/04/20 22:59 06:59 14:59 Intake Total 1020 2000 Output Total 0 3700 Balance 1020 -1700 Lab Results Last 24 Hrs: Laboratory Results - last 24 hr 02/04/20 02/04/20 Range/Units 05:07 05:07 WBC 12.87 H (3.98-10.04) K/mm3 RBC 4.08 (3.98-5.22) M/mm3 Hgb 13.0 (11.2-15.7) gm/dl Hct 40.1 (34.1-44.9) % MCV 98.3 H (79.4-94.8) fl MCH 31.9 (25.6-32.2) pg MCHC 32.4 (32.2-35.5) g/dl RDW Std Deviation 42.8 (36.4-46.3) fL Plt Count 238 (182-369) K/mm3 MPV 11.5 (9.4-12.3) fl Sodium 140 (136-145) mEq/L Potassium 3.9 (3.5-5.1) mEq/L Chloride 103 (98-107) mEq/L Carbon Dioxide 29 (21-32) mEq/L Anion Gap 11.9 (5-15) BUN 14 (7-18) mg/dL Creatinine 1.0 (0.55-1.02) mg/dL Est Cr Clr Drug Dosing 51.81 mL/min Estimated GFR (MDRD) 56 (>60) mL/min BUN/Creatinine Ratio 14.0 (14-18) Glucose 112 (80-115) mg/dL Calcium 9.0 (8.5-10.1) mg/dL Total Bilirubin 0.8 (0.2-1.0) mg/dL AST 23 (15-37) U/L ALT 31 (14-59) U/L Alkaline Phosphatase 52 (46-116) U/L Total Protein 6.7 (6.4-8.2) g/dl Albumin 3.3 L (3.4-5.0) g/dl Globulin 3.4 gm/dL Albumin/Globulin Ratio 1.0 (1-2) Med Orders - Current: Current Medications Aspirin (Ecotrin) 325 mg PO BID [facility] Bisacodyl (Dulcolax) 5 mg PO DAILY PRN PRN Reason: Constipation Cholecalciferol (Vitamin D3) 50 mcg PO DAILY [facility] Cyclobenzaprine HCl (Flexeril) 10 mg PO TID PRN PRN Reason: Spasms Docusate Sodium (Colace) 100 mg PO BID [facility] Last Admin: 02/03/20 21:43 Dose: 100 mg Documented by: Duloxetine HCl (Cymbalta) 30 mg PO BEDTIME [facility] Last Admin: 02/03/20 21:43 Dose: 30 mg Documented by: Ezetimibe (Zetia) 10 mg PO BEDTIME [facility] Last Admin: 02/03/20 21:44 Dose: 10 mg Documented by: Famotidine (Pepcid) 20 mg PO Q12H [facility] Last Admin: 02/03/20 21:43 Dose: 20 mg Documented by: Cefazolin Sodium/Dextrose 2 gm (/ Premix) 50 mls @ 100 mls/hr IV Q8H [facility] Stop: 02/04/20 10:29 Last Admin: 02/04/20 03:08 Dose: 100 mls/hr Documented by: Ketorolac Tromethamine (Toradol) 15 mg IVPUSH Q6H PRN PRN Reason: Pain Magnesium Hydroxide (Milk Of Magnesia) 30 ml PO BID PRN PRN Reason: Constipation Morphine Sulfate (Morphine) 2 mg IVPUSH Q2H PRN PRN Reason: Breakthrough Pain Naloxone HCl (Narcan) 0.1 mg IVPUSH Q5M PRN PRN Reason: Oversedation Ondansetron HCl (Zofran) 4 mg IVPUSH Q6H PRN PRN Reason: Nausea/Vomiting Oxycodone/Acetaminophen (Percocet 325-5 Mg) 1 - 2 tab PO Q4H PRN PRN Reason: Pain Last Admin: 02/04/20 07:30 Dose: 2 tab Documented by: Senna (Senna) 8.6 mg PO BID PRN PRN Reason: Constipation Discontinued Medications Acetaminophen (Tylenol) 975 mg PO ONETIME [facility] Stop: 02/03/20 14:00 Last Admin: 02/03/20 09:20 Dose: 975 mg Documented by: Bupivacaine HCl (Sensorcaine-Mpf 0.25%) Confirm Administered Dose 30 ml .ROUTE .STK-MED ONE Stop: 02/03/20 09:48 Last Admin: 02/03/20 12:23 Dose: 30 ml Documented by: Cefazolin Sodium (Ancef) Confirm Administered Dose 2 gm .ROUTE .STK-MED ONE Stop: 02/03/20 09:44 Last Admin: 02/03/20 12:20 Dose: 2 gm Documented by: Cefazolin Sodium (Ancef) Confirm Administered Dose 2 gm .ROUTE .STK-MED ONE Stop: 02/03/20 09:48 Morphine Sulfate 8 mg/Epinephrine HCl 0.3 mg/Cefuroxime Sodium 750 mg/Ketorolac Tromethamine 30 mg/Sodium Chloride 7.9 ml 0 mg .XX ASDIRECTED PRN PRN Reason: Pain Stop: 02/03/20 12:00 Last Admin: 02/03/20 12:23 Dose: 788.3 mg Documented by: Dexamethasone (Dexamethasone) Confirm Administered Dose 20 mg .ROUTE .STK-MED ONE Stop: 02/03/20 11:48 Ephedrine Sulfate (Ephedrine 25 Mg/5 Ml Syringe) Confirm Administered Dose 25 mg IV .STK-MED ONE Stop: 02/03/20 11:49 Ephedrine Sulfate (Ephedrine 25 Mg/5 Ml Syringe) Confirm Administered Dose 25 mg IV .STK-MED ONE Stop: 02/03/20 12:13 Epinephrine HCl (Adrenalin) Confirm Administered Dose 1 mg .ROUTE .STK-MED ONE Stop: 02/03/20 06:46 Fentanyl (Sublimaze) Confirm Administered Dose 100 mcg .ROUTE .STK-MED ONE Stop: 02/03/20 09:44 Fentanyl (Sublimaze) 50 mcg IVPUSH Q5M PRN PRN Reason: Pain Stop: 02/03/20 18:00 Hydromorphone HCl (Dilaudid) 0.5 mg IVPUSH Q10M PRN PRN Reason: Pain (severe 7-10) Stop: 02/03/20 18:00 Lactated Ringer's (Ringers, Lactated) 1,000 mls @ 125 mls/hr IV ASDIRECTED [facility] Stop: 02/03/20 23:00 Last Admin: 02/03/20 09:35 Dose: 125 mls/hr Documented by: Lidocaine HCl (Xylocaine-Mpf 1%) Confirm Administered Dose 4 mls @ as directed .ROUTE .STK-MED ONE Stop: 02/03/20 09:43 Lactated Ringer's (Ringers, Lactated) Confirm Administered Dose 1,000 mls @ as directed .ROUTE .STK-MED ONE Stop: 02/03/20 11:32 Lactated Ringer's (Ringers, Lactated) Confirm Administered Dose 1,000 mls @ as directed .ROUTE .STK-MED ONE Stop: 02/03/20 12:47 Iodine (Iodine 2% Mild Tincture) Confirm Administered Dose 30 ml .ROUTE .STK-MED ONE Stop: 02/03/20 09:48 Last Admin: 02/03/20 12:18 Dose: 18 ml Documented by: Ketamine HCl (Ketalar) Confirm Administered Dose 500 mg .ROUTE .STK-MED ONE Stop: 02/03/20 11:33 Ketorolac Tromethamine (Toradol) Confirm Administered Dose 30 mg .ROUTE .STK-MED ONE Stop: 02/03/20 12:25 Lidocaine/Sodium Bicarbonate (Buffered Lidocaine 1% In Ns 8.4%) 0.25 ml IDERM ONETIME PRN PRN Reason: Prior to IV Start Stop: 02/03/20 18:00 Midazolam HCl (Versed 1 Mg/Ml) Confirm Administered Dose 2 mg .ROUTE .STK-MED ONE Stop: 02/03/20 09:44 Ondansetron HCl (Zofran) Confirm Administered Dose 4 mg .ROUTE .STK-MED ONE Stop: 02/03/20 11:33 Ondansetron HCl (Zofran) 4 mg IVPUSH ONETIME PRN PRN Reason: Nausea/Vomiting Stop: 02/03/20 18:00 Oxycodone HCl (Oxycontin) 10 mg PO ONETIME [facility] Stop: 02/03/20 14:00 Last Admin: 02/03/20 09:20 Dose: 10 mg Documented by: Pregabalin (Lyrica) 50 mg PO ONETIME [facility] Stop: 02/03/20 14:00 Last Admin: 02/03/20 09:21 Dose: 50 mg Documented by: Propofol (Diprivan 20 Ml) Confirm Administered Dose 600 mg .ROUTE .STK-MED ONE Stop: 02/03/20 09:43 Ropivacaine (Naropin 0.5%) Confirm Administered Dose 30 ml .ROUTE .STK-MED ONE Stop: 02/03/20 06:46 Scopolamine (Transderm-Scop) 1.5 mg TRDERM Q72H PRN PRN Reason: PONV Stop: 02/03/20 16:00 Last Admin: 02/03/20 09:20 Dose: 1.5 mg Documented by: Sodium Chloride (Saline Flush) 10 ml FLUSH ASDIRECTED PRN PRN Reason: Keep Vein Open Stop: 02/03/20 18:00 Tranexamic Acid (Cyklokapron) Confirm Administered Dose 1,000 mg .ROUTE .STK-MED ONE Stop: 02/03/20 09:48 Last Admin: 02/03/20 12:32 Dose: 1,000 mg Documented by: Vancomycin HCl (Vancomycin) Confirm Administered Dose 1 gm .ROUTE .STK-MED ONE Stop: 02/03/20 09:48 Last Admin: 02/03/20 12:27 Dose: 1 gm Documented by: - Exam Wound/Incisions: Dressing Dry and Intact General: Alert, Cooperative, No Acute Distress Lungs: Normal Respiratory Effort Extremities: Other (NVS intact for LLE. Vikas's negative.) Sepsis Event Note - Evaluation Sepsis Screening Result: No Definite Risk - Focused Exam Vital Signs: Vital Signs Temp Pulse Resp BP Pulse Ox Pulse Ox Pulse Ox 02/04/20 06:30 94 L 02/04/20 02:58 98.6 F 66 18 120/65 95 02/03/20 23:40 98.1 F 69 20 121/71 94 L 02/03/20 22:22 90 L 02/03/20 22:17 91 L Date Exam was Performed: 02/04/20 Time Exam was Performed: 08:13 - Problem List Review Problem List Initiated/Reviewed/Updated: Yes - My Orders Last 24 Hours: Active Orders 24 hr Category Date Time Status CPAP Noctural Home [RT BiPAP/CPAP] [RC] ASDIRECTED Care 02/03/20 16:06 Active Ready for Discharge [] PER UNIT ROUTINE Care 02/04/20 08:12 Ordered Regular Diet [DIET] Diet 02/03/20 Lunch Active Aspirin [Ecotrin] Med 02/04/20 09:00 Active 325 mg PO BID Cholecalciferol (Vitamin D3) [Vitamin D3] Med 02/04/20 09:00 Active 50 mcg PO DAILY DULoxetine [Cymbalta] Med 02/03/20 21:00 Active 30 mg PO BEDTIME Docusate Sodium [Colace] Med 02/03/20 21:00 Active 100 mg PO BID Ezetimibe [Zetia] Med 02/03/20 21:00 Active 10 mg PO BEDTIME Famotidine [Pepcid] Med 02/03/20 21:00 Active 20 mg PO Q12H Ketorolac [Toradol] Med 02/03/20 19:00 Active 15 mg IVPUSH Q6H PRN ceFAZolin [Ancef] 2 gm Med 02/03/20 18:00 Active Premix Bag 1 bag IV Q8H Medication Orders Aspirin (Ecotrin) 325 mg PO BID [facility] Bisacodyl (Dulcolax) 5 mg PO DAILY PRN PRN Reason: Constipation Cholecalciferol (Vitamin D3) 50 mcg PO DAILY [facility] Cyclobenzaprine HCl (Flexeril) 10 mg PO TID PRN PRN Reason: Spasms Docusate Sodium (Colace) 100 mg PO BID [facility] Last Admin: 02/03/20 21:43 Dose: 100 mg Documented by: STEPHANY Duloxetine HCl (Cymbalta) 30 mg PO BEDTIME [facility] Last Admin: 02/03/20 21:43 Dose: 30 mg Documented by: STEPHANY Ezetimibe (Zetia) 10 mg PO BEDTIME [facility] Last Admin: 02/03/20 21:44 Dose: 10 mg Documented by: STEPHANY Famotidine (Pepcid) 20 mg PO Q12H [facility] Last Admin: 02/03/20 21:43 Dose: 20 mg Documented by: STEPHANY Cefazolin Sodium/Dextrose 2 gm (/ Premix) 50 mls @ 100 mls/hr IV Q8H [facility] Stop: 02/04/20 10:29 Last Admin: 02/04/20 03:08 Dose: 100 mls/hr Documented by: Infusion: 02/03/20 17:34 Dose: 100 mls/hr Documented by: Admin: 02/03/20 17:04 Dose: 100 mls/hr Documented by: LAVON Ketorolac Tromethamine (Toradol) 15 mg IVPUSH Q6H PRN PRN Reason: Pain Magnesium Hydroxide (Milk Of Magnesia) 30 ml PO BID PRN PRN Reason: Constipation Morphine Sulfate (Morphine) 2 mg IVPUSH Q2H PRN PRN Reason: Breakthrough Pain Naloxone HCl (Narcan) 0.1 mg IVPUSH Q5M PRN PRN Reason: Oversedation Ondansetron HCl (Zofran) 4 mg IVPUSH Q6H PRN PRN Reason: Nausea/Vomiting Oxycodone/Acetaminophen (Percocet 325-5 Mg) 1 - 2 tab PO Q4H PRN PRN Reason: Pain Last Admin: 02/04/20 07:30 Dose: 2 tab Documented by: Admin: 02/04/20 03:15 Dose: 2 tab Documented by: Admin: 02/03/20 21:44 Dose: 2 tab Documented by: Admin: 02/03/20 17:03 Dose: 2 tab Documented by: LAVON Senna (Senna) 8.6 mg PO BID PRN PRN Reason: Constipation - Assessment Assessment (Free Text/Narrative):: POD#1 - left TKA - Plan Plan (Free Text/Narrative):: 1. Hgb 13.0. 2. Discharge to home today. 3. 325mg ASA PO BID, frequent mobility, TEDs. 4. Outpatient therapy. The pt's case was discussed with Dr. Valencia.
[2020-02-04] MEDS: Famotidine 20 MG Tab PO SCH (08:18)
[2020-02-04] MEDS: Docusate Sodium 100 MG Cap PO SCH (08:18)
[2020-02-04 08:24] VITALS: BP 133/79; PULSE 65
--- NOTE | 2020-02-04 11:58 | PCM48HPAN ---
Post Anesthesia Note - EVALUATION WITHIN 48HRS OF ANESTHETIC Vital Signs in Normal Range: Yes Patient Participated in Evaluation: Yes Respiratory Function Stable: Yes Airway Patent: Yes Cardiovascular Function Stable: Yes Hydration Status Stable: Yes Pain Control Satisfactory: Yes (pleased with anesthesia) Nausea and Vomiting Control Satisfactory: Yes Mental Status Recovered: Yes (no pain unless moves. Was up alot last night going to bathroom.) Vital Signs: Last Vital Signs Temp 99.7 F 02/04/20 08:16 Pulse 65 02/04/20 08:16 Resp 20 02/04/20 08:16 BP 133/79 02/04/20 08:16 Pulse Ox 96 02/04/20 08:16
[~2020-02-04 12:30] MED LIST: Acetaminophen 325 MG Tab PO SCH; Aspirin 325 MG Tab.EC PO SCH; Bisacodyl 5 MG Tab PO PRN; Cholecalciferol (Vitamin D3) 25 MCG Tab PO SCH; Cyclobenzaprine 10 MG Tab PO PRN; DULoxetine 30 MG Cap PO SCH; Dexamethasone 4 MG/ML 5 ML MDV ONE; EPINEPHrine 1 MG/ML SDV ONE; Ezetimibe 10 MG Tab PO SCH; HYDROmorphone 0.5 MG/0.5 ML Syringe IVPUSH PRN; Ketamine 500 mg/10 ML MDV ONE; Ketorolac 15 MG/ML SDV IVPUSH PRN; Ketorolac 30 MG/ML SDV ONE; Lactated Ringers 1,000 ML IV SCH; Lactated Ringers 1,000 ML ONE; Lidocaine 1% 4 ML ONE; Lidocaine 1%/Sod Bicarbonate in NS 8.4% 1 ML Syringe IDERM PRN; Magnesium Hydroxide 400 MG/5 ML Susp 30 ML Cup PO PRN; Midazolam 1 MG/ML 2 ML SDV ONE; Morphine 2 MG/ML Syringe IVPUSH PRN; Naloxone 0.4 MG/ML SDV IVPUSH PRN; Ondansetron 4 MG/2 ML SDV IVPUSH PRN; Ondansetron 4 MG/2 ML SDV ONE; Pregabalin 25 MG Cap PO SCH; Propofol 200 MG/20 ML SDV ONE; Ropivacaine 0.5% 5 MG/ML 30 ML SDV ONE; Scopolamine 1.5 MG Transdermal Patch TRDERM PRN; Sennosides 8.6 MG Tab PO PRN; Sodium Chloride 0.9% 10 ML Syringe FLUSH PRN; Sodium Chloride 0.9% 500 ML IV ONE; ceFAZolin 1 GM Vial ONE; ePHEDrine Sulfate/0.9% NaCl/Pf 25 MG/5 ML SYRINGE IV ONE; fentaNYL 100 MCG/2 ML SDV IVPUSH PRN; fentaNYL 100 MCG/2 ML SDV ONE; oxyCODONE ER 10 MG TAB.ER PO SCH
--- NOTE | 2020-02-05 09:38 | PCM.DCSUM1 ---
Discharge Summary - Hospital Course Brief History: Linda is a 64 yo female who underwent left TKA with Dr. Valencia on 02-03-2020. The procedure was completed under spinal anesthesia with sedation. The pt tolerated the procedure well and was admitted to the Medical-Surgical Unit. Medical management was provided by the Hospitalist service. The pt's Hospital course was remarkable for a decrease in GFR which was monitored and treated by the Hospitalist service. The pt's Hgb on POD#1 was 13.0. On POD#1, 325mg ASA BID was initiated for VTE prophylaxis. SCDs and TEDs were also ordered. A Mepilex dressing was placed at the incision site at the time of surgery and remained clean and dry. The pt participated in P.T. and O.T. and progressed well. The pt was allowed to WBAT and used a FWW for mobility. On POD#1, the pt was deemed appropriate to discharge to home with her family. - Discharge Data Discharge Date: 02/04/20 Discharge Disposition: Home, Self-Care 01 Condition: Good - Referral to Home Health Primary Care Physician: Mercedes Cassidy NP - Patient Summary/Data Operative Procedure(s) Performed: left total knee arthroplasty Consults: Consultations 02/03/20 06:30 OT Evaluation and Treatment [CONS] Routine PT Evaluation and Treatment [CONS] Routine 02/03/20 06:31 Consult to Physician [CONS] Routine - Patient Instructions Diet: Usual Diet as Tolerated Activity: Apply Ice, As Tolerated, Elevate Extremity, Full Weight Bearing Driving: Do Not Drive Showering/Bathing: May Shower Wound/Incision Care: Keep Operative Site/Wound Site Clean and Dry, Do NOT Change Dressing Notify Provider of: Fever, Increased Pain, Swelling and Redness, Drainage, Nausea and/or Vomiting Other/Special Instructions: Please get up and moving around EVERY HOUR while awake. This helps to prevent blood clots. Please use your walker and have help with mobility as needed. Take a short walk in your home every hour while awake. Please take 325mg aspirin TWICE daily. The aspirin is being used for blood clot prevention and not for pain management so please do not miss a dose of the medication. You could use a medication like Pepcid or Tagamet and a medication like Prilosec or Nexium to protect your stomach while you are using the aspirin. At home, please complete the exercises that you learned during the Hospital stay. Schedule for physical therapy. Use the pain medication as needed. The medication may cause drowsiness and constipation. Contact your primary care provider for instructions if you are constipated. You may use a stool softener like docusate sodium or Colace 100mg twice daily and/or a laxative like Miralax daily for constipation. Increase your water and fiber intake while you are using the pain medication. Discontinue use of the pain medication as soon as able. Please do not use other medications that may cause drowsiness (other pain medications, anxiety pills, cold medications, sleeping p ills, etc) while using the prescription pain medication. Do not use alcohol while using the pain medication. You may use acetaminophen or Tylenol for pain management, however, please ensure you are not using over 4000 mg or 4 grams of acetaminophen per day from all sources. Your pain medication has 325mg of acetaminophen per tablet. At this time, please do not use ibuprofen (Motrin, Advil) or naproxen (Aleve) for pain management as you are using the aspirin. When the aspirin course is completed in 4 to 6 weeks, you could use ibuprofen or naproxen for pain management (if this is allowed by your primary care provider). Wear the BETHEL hose during the day and you may remove these at night. Elevate the limb to decrease swelling. Place ice to the area often. Place a towel between your skin and the blue pad. Use the incentive spirometer often. Take deep breaths throughout the day. Please keep the dressing in place until follow-up. Notify the Clinic if the dressing becomes saturated. Increase your protein intake while you are healing. If you have diabetes, please closely monitor your blood sugars and notify your primary care provider with abnormal values. Elevated blood sugars increases the risk of infection. Call the Clinic with questions or concerns - [phone] and leave a message for the nurse. Recommend follow-up with PCP within 5-7 days of discharge for repeat BMP to re- check renal function. - Discharge Plan *PRESCRIPTION DRUG MONITORING PROGRAM REVIEWED*: No *COPY OF PRESCRIPTION DRUG MONITORING REPORT IN PATIENT ANASTACIO: No Prescriptions/Med Rec: Aspirin [Ecotrin EC] 325 mg PO BID #84 tab.ec Cyclobenzaprine [Flexeril] 10 mg PO BID PRN #20 tablet PRN Reason: Spasms Acetaminophen/oxyCODONE [Percocet 325-5 MG] 1 - 2 tab PO Q4H PRN #60 tablet PRN Reason: Pain Home Medications: Home Meds DULoxetine [Cymbalta] 30 mg PO DAILY 09/30/15 [History] Glucosam/Chond-MSM 2/C/D3/Rustam [[id number]] 1 tab PO DAILY 09/30/15 [History] Hydrochlorothiazide 25 mg PO DAILY 09/30/15 [History] Calcium Carb/Vitamin D3/Vit K1 [Calcium + D Soft Chewable Tab] 2 tab PO DAILY 04/19/16 [History] Ubidecarenone [Coq-10] 1 cap PO DAILY 04/19/16 [History] Ascorbic Acid [Vitamin C] 500 mg PO DAILY 01/31/20 [History] Cholecalciferol (Vitamin D3) [Vitamin D3] 2,000 unit PO DAILY 01/31/20 [History] Ezetimibe [Zetia] 10 mg PO DAILY 01/31/20 [History] LORazepam [Ativan] 0.25 - 0.5 mg PO Q8H PRN 01/31/20 [History] Melatonin 10 mg PO DAILY 01/31/20 [History] Multivitamin 1 tab PO DAILY 01/31/20 [History] Acetaminophen/oxyCODONE [Percocet 325-5 MG] 1 - 2 tab PO Q4H PRN #60 tablet 02/04/20 [Rx] Aspirin [Ecotrin EC] 325 mg PO BID #84 tab.ec 02/04/20 [Rx] Cyclobenzaprine [Flexeril] 10 mg PO BID PRN #20 tablet 02/04/20 [Rx] Docusate Sodium [Colace] 100 mg PO BID cap 02/04/20 [Rx] Famotidine [Pepcid] 20 mg PO Q12H tablet 02/04/20 [Rx] Magnesium Hydroxide [Milk of Magnesia] 30 ml PO BID PRN cup 02/04/20 [Rx] Sennosides [Senna] 8.6 mg PO BID PRN tablet 02/04/20 [Rx] bisacodyL [Dulcolax] 5 mg PO DAILY PRN tablet 02/04/20 [Rx] Patient Handouts: Total Knee Replacement, [id number] Referrals: Laumb,Meka J, PA-C [Physician Pepper Picker] - (Please follow up with Meka Kenny PA-C on the following dates- February 10 at 11:45 am, February 17 at 11:45 am, and March 17 at 11:45 am.) - Discharge Summary/Plan Comment DC Time >30 min.: No - Patient Data Vitals - Most Recent: Last Vital Signs Temp 98.8 F 02/04/20 08:23 Pulse 65 02/04/20 08:16 Resp 20 02/04/20 08:16 BP 133/79 02/04/20 08:16 Pulse Ox 96 02/04/20 08:16 Weight - Most Recent: 200 lb 6.4 oz Med Orders - Current: Current Medications Discontinued Medications Acetaminophen (Tylenol) 975 mg PO ONETIME [facility] Stop: 02/03/20 14:00 Last Admin: 02/03/20 09:20 Dose: 975 mg Documented by: Aspirin (Ecotrin) 325 mg PO BID [facility] Last Admin: 02/04/20 08:18 Dose: 325 mg Documented by: Bisacodyl (Dulcolax) 5 mg PO DAILY PRN PRN Reason: Constipation Bupivacaine HCl (Sensorcaine-Mpf 0.25%) Confirm Administered Dose 30 ml .ROUTE .STK-MED ONE Stop: 02/03/20 09:48 Last Admin: 02/03/20 12:23 Dose: 30 ml Documented by: Cefazolin Sodium (Ancef) Confirm Administered Dose 2 gm .ROUTE .STK-MED ONE Stop: 02/03/20 09:44 Last Admin: 02/03/20 12:20 Dose: 2 gm Documented by: Cefazolin Sodium (Ancef) Confirm Administered Dose 2 gm .ROUTE .STK-MED ONE Stop: 02/03/20 09:48 Cholecalciferol (Vitamin D3) 50 mcg PO DAILY [facility] Last Admin: 02/04/20 08:18 Dose: 50 mcg Documented by: Morphine Sulfate 8 mg/Epinephrine HCl 0.3 mg/Cefuroxime Sodium 750 mg/Ketorolac Tromethamine 30 mg/Sodium Chloride 7.9 ml 0 mg .XX ASDIRECTED PRN PRN Reason: Pain Stop: 02/03/20 12:00 Last Admin: 02/03/20 12:23 Dose: 788.3 mg Documented by: Cyclobenzaprine HCl (Flexeril) 10 mg PO TID PRN PRN Reason: Spasms Last Admin: 02/04/20 09:18 Dose: 10 mg Documented by: Dexamethasone (Dexamethasone) Confirm Administered Dose 20 mg .ROUTE .STK-MED ONE Stop: 02/03/20 11:48 Docusate Sodium (Colace) 100 mg PO BID [facility] Last Admin: 02/04/20 08:18 Dose: 100 mg Documented by: Duloxetine HCl (Cymbalta) 30 mg PO BEDTIME [facility] Last Admin: 02/03/20 21:43 Dose: 30 mg Documented by: Ezetimibe (Zetia) 10 mg PO BEDTIME [facility] Last Admin: 02/03/20 21:44 Dose: 10 mg Documented by: Ephedrine Sulfate (Ephedrine 25 Mg/5 Ml Syringe) Confirm Administered Dose 25 mg IV .STK-MED ONE Stop: 02/03/20 11:49 Ephedrine Sulfate (Ephedrine 25 Mg/5 Ml Syringe) Confirm Administered Dose 25 mg IV .STK-MED ONE Stop: 02/03/20 12:13 Epinephrine HCl (Adrenalin) Confirm Administered Dose 1 mg .ROUTE .STK-MED ONE Stop: 02/03/20 06:46 Famotidine (Pepcid) 20 mg PO Q12H [facility] Last Admin: 02/04/20 08:18 Dose: 20 mg Documented by: Fentanyl (Sublimaze) Confirm Administered Dose 100 mcg .ROUTE .STK-MED ONE Stop: 02/03/20 09:44 Fentanyl (Sublimaze) 50 mcg IVPUSH Q5M PRN PRN Reason: Pain Stop: 02/03/20 18:00 Hydromorphone HCl (Dilaudid) 0.5 mg IVPUSH Q10M PRN PRN Reason: Pain (severe 7-10) Stop: 02/03/20 18:00 Lactated Ringer's (Ringers, Lactated) 1,000 mls @ 125 mls/hr IV ASDIRECTED [facility] Stop: 02/03/20 23:00 Last Admin: 02/03/20 09:35 Dose: 125 mls/hr Documented by: Cefazolin Sodium/Dextrose 2 gm (/ Premix) 50 mls @ 100 mls/hr IV Q8H [facility] Stop: 02/04/20 10:29 Last Admin: 02/04/20 10:16 Dose: 100 mls/hr Documented by: Lidocaine HCl (Xylocaine-Mpf 1%) Confirm Administered Dose 4 mls @ as directed .ROUTE .STK-MED ONE Stop: 02/03/20 09:43 Lactated Ringer's (Ringers, Lactated) Confirm Administered Dose 1,000 mls @ as directed .ROUTE .STK-MED ONE Stop: 02/03/20 11:32 Lactated Ringer's (Ringers, Lactated) Confirm Administered Dose 1,000 mls @ as directed .ROUTE .STK-MED ONE Stop: 02/03/20 12:47 Sodium Chloride (Normal Saline) 500 mls @ 999 mls/hr IV .BOLUS ONE Stop: 02/04/20 08:44 Last Admin: 02/04/20 09:34 Dose: 999 mls/hr Documented by: Iodine (Iodine 2% Mild Tincture) Confirm Administered Dose 30 ml .ROUTE .STK-MED ONE Stop: 02/03/20 09:48 Last Admin: 02/03/20 12:18 Dose: 18 ml Documented by: Ketamine HCl (Ketalar) Confirm Administered Dose 500 mg .ROUTE .STK-MED ONE Stop: 02/03/20 11:33 Ketorolac Tromethamine (Toradol) 15 mg IVPUSH Q6H PRN PRN Reason: Pain Ketorolac Tromethamine (Toradol) Confirm Administered Dose 30 mg .ROUTE .STK-MED ONE Stop: 02/03/20 12:25 Lidocaine/Sodium Bicarbonate (Buffered Lidocaine 1% In Ns 8.4%) 0.25 ml IDERM ONETIME PRN PRN Reason: Prior to IV Start Stop: 02/03/20 18:00 Magnesium Hydroxide (Milk Of Magnesia) 30 ml PO BID PRN PRN Reason: Constipation Midazolam HCl (Versed 1 Mg/Ml) Confirm Administered Dose 2 mg .ROUTE .STK-MED ONE Stop: 02/03/20 09:44 Morphine Sulfate (Morphine) 2 mg IVPUSH Q2H PRN PRN Reason: Breakthrough Pain Naloxone HCl (Narcan) 0.1 mg IVPUSH Q5M PRN PRN Reason: Oversedation Ondansetron HCl (Zofran) 4 mg IVPUSH Q6H PRN PRN Reason: Nausea/Vomiting Ondansetron HCl (Zofran) Confirm Administered Dose 4 mg .ROUTE .STK-MED ONE Stop: 02/03/20 11:33 Ondansetron HCl (Zofran) 4 mg IVPUSH ONETIME PRN PRN Reason: Nausea/Vomiting Stop: 02/03/20 18:00 Oxycodone HCl (Oxycontin) 10 mg PO ONETIME [facility] Stop: 02/03/20 14:00 Last Admin: 02/03/20 09:20 Dose: 10 mg Documented by: Oxycodone/Acetaminophen (Percocet 325-5 Mg) 1 - 2 tab PO Q4H PRN PRN Reason: Pain Last Admin: 02/04/20 07:30 Dose: 2 tab Documented by: Pregabalin (Lyrica) 50 mg PO ONETIME [facility] Stop: 02/03/20 14:00 Last Admin: 02/03/20 09:21 Dose: 50 mg Documented by: Propofol (Diprivan 20 Ml) Confirm Administered Dose 600 mg .ROUTE .STK-MED ONE Stop: 02/03/20 09:43 Ropivacaine (Naropin 0.5%) Confirm Administered Dose 30 ml .ROUTE .STK-MED ONE Stop: 02/03/20 06:46 Scopolamine (Transderm-Scop) 1.5 mg TRDERM Q72H PRN PRN Reason: PONV Stop: 02/03/20 16:00 Last Admin: 02/03/20 09:20 Dose: 1.5 mg Documented by: Senna (Senna) 8.6 mg PO BID PRN PRN Reason: Constipation Sodium Chloride (Saline Flush) 10 ml FLUSH ASDIRECTED PRN PRN Reason: Keep Vein Open Stop: 02/03/20 18:00 Tranexamic Acid (Cyklokapron) Confirm Administered Dose 1,000 mg .ROUTE .STK-MED ONE Stop: 02/03/20 09:48 Last Admin: 02/03/20 12:32 Dose: 1,000 mg Documented by: Vancomycin HCl (Vancomycin) Confirm Administered Dose 1 gm .ROUTE .STK-MED ONE Stop: 02/03/20 09:48 Last Admin: 02/03/20 12:27 Dose: 1 gm Documented by:
--- NOTE | 2020-02-10 10:31 | OR ---
DATE OF OPERATION: 02/03/2020 SURGEON: Santos Valencia MD OPERATION PERFORMED: Left total knee arthroplasty. PREOPERATIVE DIAGNOSIS: Left knee osteoarthrosis. POSTOPERATIVE DIAGNOSIS: Left knee osteoarthrosis. ANESTHESIA: Local MAC with spinal. ANESTHESIA PROVIDER: Braeden Perkins CRNA ASSISTANTS: Meka Kenny PA-C and Carley Bernal LPN ESTIMATED BLOOD LOSS: 250 mL. COMPLICATIONS: None. CONDITION: Stable. IMPLANTS: 1. Elda size 3 press-fit CR femur. 2. Elda size 3 press-fit tibial base plate. 3. Elda size 3, 9 mm CS polyethylene insert. 4. Elda size 29 x 9 mm press fit asymmetric patella. DESCRIPTION OF PROCEDURE: The patient was identified in the preop holding area. Proper site was marked and identified by the surgeon. The patient was taken back to the operating theater. After adequate anesthesia, the patient's left lower extremity had a nonsterile tourniquet applied and it was sterilely prepped and draped in the usual sterile fashion. OR time-out was performed. The patient received 2 g IV Ancef. At this time, the left lower extremity was exsanguinated. Tourniquet was insufflated to 300 mmHg. Standard medial parapatellar incision was made. Medial parapatellar arthrotomy was created. Deep fibers of the MCL were raised and anterior fat pad was resected. At this time, attention was turned to the patella. Patella measured a 21, it was resected to a 13 for a 29 x 9 mm patella. Drill holes were then drilled and found to be in adequate position. The drill was then drilled in the distal femur and the intramedullary distal femoral cutting guide was then placed. 8 mm was resected off the distal femur and was found to be an adequate resection. Sizing guide was placed. It was found to be a size 3 press-fit CR femur that was shown on the implant record at the beginning of this dictation. The drill holes were drilled for the epicondylar axis using Whitesides line and epicondyles as reference. At this time, the 4-in-1 cutting block was placed. An anterior posterior and anterior and posterior chamfer cuts were then completed. Attention was turned to the tibia. The posterior medial lateral retractors were placed. The extramedullary tibial guide was placed. It was placed in the old footprint of the ACL. It was aligned with the center of the ankle and 0 degrees of slope, 9 mm was then resected off the unaffected side. There was found to be an acceptable reduction. At this time, posterior osteophytes were removed along with medial and lateral meniscus. A trial implant was placed with a correct sized tibia that was mentioned at the beginning of the dictation. A Elda size 3, 9 mm CS polyethylene insert was then placed. The patient's knee was brought through range of motion. The patella was tracking centrally and was stable to varus and valgus stress. Alignment was found to be roughly at 0 degrees. The tibia was stamped and drilled in proper rotation. The universal tibial base plate was impacted in place. Next, the Upton size 3 press-fit CR femur impacted into place and the Upton size 3, 9 mm CS polyethylene insert was placed. The patient's knee was brought into full extension. The patella was then press-fit in place at this time. Tourniquet was deflated. One liter dilute Betadine solution was irrigated through the knee along with 3 L of pulse lavage irrigation with Ancef. Periarticular injection was then completed. The patient's knee was brought through a range of motion. Knee was found to be stable to varus valgus stress, the patella was tracking centrally with full range of motion. At this time, a #2 barbed suture was used for closure of the medial parapatellar arthrotomy. Topical tranexamic acid was placed. 2-0 Vicryl was used subcutaneously, Prineo was used for the skin. The patient tolerated the procedure well and was sent to the PACU in stable condition. VIOLET /[id number] JADE
== END | disposition home or self-care (01) | DRG 302 ==
LOC: JD.MS 02-03 09:02 → EDSTATUS 02-03 11:15
PROVIDERS: ADMIT Orthopaedic Surgery; ATTEND Orthopaedic Surgery
PROC: 0SRD0JA Replacement of Left Knee Joint with Synthetic Substitute, Uncemented, Open Approach (ICD-10-PCS; principal; 2020-02-03)
DX: M17.12 Unilateral primary osteoarthritis, left knee (principal); F41.9 Anxiety disorder, unspecified; F32.9 Major depressive disorder, single episode, unspecified; I10 Essential (primary) hypertension; E78.2 Mixed hyperlipidemia; G47.33 Obstructive sleep apnea (adult) (pediatric); E78.00 Pure hypercholesterolemia, unspecified; K21.9 Gastro-esophageal reflux disease without esophagitis; K29.70 Gastritis, unspecified, without bleeding; N31.8 Other neuromuscular dysfunction of bladder; E66.9 Obesity, unspecified; Z85.528 Personal history of other malignant neoplasm of kidney; Z90.49 Acquired absence of other specified parts of digestive tract; Z98.890 Other specified postprocedural states; Z90.710 Acquired absence of both cervix and uterus; Z98.51 Tubal ligation status; Z79.899 Other long term (current) drug therapy; Z99.81 Dependence on supplemental oxygen; Z88.0 Allergy status to penicillin; Z91.09 Other allergy status, other than to drugs and biological substances; Z88.2 Allergy status to sulfonamides; Z91.041 Radiographic dye allergy status; Z88.8 Allergy status to other drugs, medicaments and biological substances; Z85.43 Personal history of malignant neoplasm of ovary; Z68.33 Body mass index [BMI] 33.0-33.9, adult
CPT/HCPCS: 01402; 36415; 64450; 73560-26-LT; 73560-LT; 80053; 85027; 87641; 97110-GP; 97116-GP; 97161-GP; 97165-GO; 97535-GO; A9270-GY; C1776; J0171; J0690; J0697; J1100; J1885; J2001; J2250; J2270; J2405; J2704; J2795; J3010; J3370; J3490; J7030; J7120; U0002

== ENCOUNTER 2022-08-29 06:00 | Day surgery (SDC) | payer BC ==
[~2022-08-29 06:00] MED LIST changes: -Aspirin 325 MG Tab.EC PO SCH; -Bisacodyl 5 MG Tab PO PRN; -Cholecalciferol (Vitamin D3) 25 MCG Tab PO SCH; -Cyclobenzaprine 10 MG Tab PO PRN; -DULoxetine 30 MG Cap PO SCH; -Dexamethasone 4 MG/ML 5 ML MDV ONE; -EPINEPHrine 1 MG/ML SDV ONE; -Ezetimibe 10 MG Tab PO SCH; -HYDROmorphone 0.5 MG/0.5 ML Syringe IVPUSH PRN; -Ketamine 500 mg/10 ML MDV ONE; -Ketorolac 15 MG/ML SDV IVPUSH PRN; -Ketorolac 30 MG/ML SDV ONE; -Lactated Ringers 1,000 ML ONE; -Lidocaine 1% 4 ML ONE; -Magnesium Hydroxide 400 MG/5 ML Susp 30 ML Cup PO PRN; -Midazolam 1 MG/ML 2 ML SDV ONE; -Morphine 2 MG/ML Syringe IVPUSH PRN; +Morphine 8 MG, EPINEPHrine 0.3 MG, Cefuroxime 750 MG, Ketorolac 30 MG, Sodium Chloride ... PRN; -Naloxone 0.4 MG/ML SDV IVPUSH PRN; -Ondansetron 4 MG/2 ML SDV IVPUSH PRN; -Ondansetron 4 MG/2 ML SDV ONE; -Propofol 200 MG/20 ML SDV ONE; -Ropivacaine 0.5% 5 MG/ML 30 ML SDV ONE; -Scopolamine 1.5 MG Transdermal Patch TRDERM PRN; -Sennosides 8.6 MG Tab PO PRN; +Sodium Chloride 0.9% 10 ML Syringe FLUSH SCH; -Sodium Chloride 0.9% 500 ML IV ONE; -ceFAZolin 1 GM Vial ONE; -ePHEDrine Sulfate/0.9% NaCl/Pf 25 MG/5 ML SYRINGE IV ONE; -fentaNYL 100 MCG/2 ML SDV IVPUSH PRN; -fentaNYL 100 MCG/2 ML SDV ONE
[2022-08-29] MEDS ORDERED: Ropivacaine 0.5% 5 MG/ML 30 ML SDV ONE (06:14)
[2022-08-29] MEDS ORDERED: EPINEPHrine 1 MG/ML SDV ONE (06:14)
[2022-08-29] MEDS ORDERED: Propofol 200 MG/20 ML SDV ONE ×2 (06:16→08:14)
[2022-08-29] MEDS ORDERED: fentaNYL 100 MCG/2 ML SDV ONE (06:17)
[2022-08-29] MEDS ORDERED: Dexmedetomidine 200 MCG/2 ML SDV ONE (06:17)
[2022-08-29] MEDS ORDERED: Lidocaine 1% 5 ML VIAL ONE (06:17)
[2022-08-29] MEDS ORDERED: Midazolam 1 MG/ML 2 ML SDV ONE (06:17)
[2022-08-29] MEDS ORDERED: ceFAZolin 2 GM Vial ONE (06:17)
[2022-08-29] MEDS ORDERED: Ondansetron 4 MG/2 ML SDV ONE ×2 (06:20→08:13)
[2022-08-29] MEDS ORDERED: Tranexamic Acid 1,000 MG/10 ML Vial ONE (06:36)
[2022-08-29] MEDS ORDERED: Vancomycin 1 GM SDV ONE (06:36)
[2022-08-29] MEDS ORDERED: Lidocaine 1% 4 ML ONE (07:18)
[2022-08-29] MEDS ORDERED: Dexamethasone 4 MG/ML 5 ML MDV ONE (07:22)
[2022-08-29] MEDS ORDERED: ePHEDrine 50 MG/ML SDV ONE (07:33)
[2022-08-29] MEDS ORDERED: Ketorolac 30 MG/ML SDV ONE (07:47)
[2022-08-29] MEDS ORDERED: HYDROmorphone 0.5 MG/0.5 ML Syringe IVPUSH PRN (07:59)
[2022-08-29] MEDS ORDERED: Ondansetron 4 MG/2 ML SDV IVPUSH PRN (07:59)
[2022-08-29] MEDS ORDERED: fentaNYL 100 MCG/2 ML SDV IVPUSH PRN (07:59)
[2022-08-29] MEDS ORDERED: oxyCODONE 5 MG Tab PO PRN (09:05)
[2022-08-29] MEDS ORDERED: Lactated Ringers 1,000 ML ONE ×2 (10:28)
[2022-08-29 12:01] VITALS: BP 132/69; PULSE 85
== END 2022-08-29 12:38 | disposition home or self-care (01) ==
LOC: JD.SDS 06:00
PROVIDERS: ATTEND Orthopaedic Surgery
DX: M17.11 Unilateral primary osteoarthritis, right knee (principal); I10 Essential (primary) hypertension; E78.00 Pure hypercholesterolemia, unspecified; G47.33 Obstructive sleep apnea (adult) (pediatric); F41.9 Anxiety disorder, unspecified; F32.A Depression, unspecified; E03.9 Hypothyroidism, unspecified; Z79.899 Other long term (current) drug therapy; Z88.0 Allergy status to penicillin; Z88.2 Allergy status to sulfonamides; Z98.890 Other specified postprocedural states; Z90.710 Acquired absence of both cervix and uterus; Z79.82 Long term (current) use of aspirin
CPT/HCPCS: 0055T; 27447; 64447; 73560; 97110; 97116; 97161; A9270; C1713; C1776; J0171; J0690; J0697; J1100; J1885; J2250; J2270; J2405; J2704; J2795; J3010; J3370; J7120; 01402; 64450; J3490

== ENCOUNTER 2024-10-10 17:35 | Emergency (ER) | payer BC ==
[2024-10-10 18:24] LABS: BASOPHILS ABSOLUTE AUTO 0.1 K/mm3 (0.0-0.2); BASOPHILS PERCENT AUTO 0.8 % (0.0-1.0); EOSINOPHILS ABSOLUTE AUTO 0.2 K/mm3 (0.0-0.4); EOSINOPHILS PERCENT AUTO 3.2 % (0.0-6.0); HEMATOCRIT 42.5 % (37.0-47.0); HEMOGLOBIN 14.3 gm/dl (12.0-16.0); IMMATURE GRAN ABSOLUTE AUTO 0.02 K/mm3 (0.00-0.05); IMMATURE GRAN PERCENT AUTO 0.3 % (0.0-0.4); LYMPHOCYTES ABSOLUTE AUTO 2.2 K/mm3 (1.0-4.8); LYMPHOCYTES PERCENT AUTO 28.9 % (24.0-44.0); MEAN CORPUSCULAR HEMOGLOBIN 32.4 pg (28.0-32.0); MEAN CORPUSCULAR HGB CONC 33.6 g/dl (32.0-36.0); MEAN CORPUSCULAR VOLUME 96.4 fl (83.0-99.0); MEAN PLATELET VOLUME 11.1 fl (9.4-12.3); MONOCYTES ABSOLUTE AUTO 0.7 K/mm3 (0.0-0.8); MONOCYTES PERCENT AUTO 9.5 % (0.0-8.0); NEUTROPHILS ABSOLUTE AUTO 4.3 K/mm3 (1.8-7.7); NEUTROPHILS PERCENT AUTO 57.3 % (41.0-71.0); PLATELET COUNT,PLT 259 K/mm3 (150-400); RED BLOOD CELL COUNT 4.41 M/mm3 (4.10-5.30); WHITE BLOOD CELL COUNT,WBC 7.44 K/mm3 (3.9-11.3)
[2024-10-10] MEDS: LORazepam 0.5 MG Tab PO ONE (18:26)
[2024-10-10 18:37] LABS: A/G RATIO 1.2 (1-2); ALBUMIN 3.7 g/dl (3.4-5.0); ANION GAP 14.3 (5-15); BILIRUBIN TOTAL 0.4 mg/dL (0.2-1.0); BUN/CREATININE RATIO 15.4 (14-18); CALCIUM 9.2 mg/dL (8.5-10.1); CREATININE 1.3 mg/dL (0.55-1.02); EST CRCL DRUG DOSING (CG) 37.27 mL/min; POTASSIUM,K 3.3 mEq/L (3.5-5.1); PROTEIN TOTAL,TP 6.8 g/dl (6.4-8.2)
[2024-10-10 20:09] VITALS: BP 151/84; PULSE 53
== END 2024-10-10 19:53 | disposition home or self-care (01) ==
LOC: JD.ED 17:35
DX: I10 Essential (primary) hypertension (principal); Z63.4 Disappearance and death of family member; E78.00 Pure hypercholesterolemia, unspecified; E03.9 Hypothyroidism, unspecified; Z90.710 Acquired absence of both cervix and uterus; Z88.0 Allergy status to penicillin; Z91.041 Radiographic dye allergy status; Z88.8 Allergy status to other drugs, medicaments and biological substances; Z79.899 Other long term (current) drug therapy; Z79.82 Long term (current) use of aspirin
CPT/HCPCS: 36415; 80053; 84484; 85025; 93005; 99284; A9270